=== PATIENT | male | born 1965 | race Caucasian/White ===

== ENCOUNTER 2016-11-17 11:08 | Emergency (ER) | payer MEDICARE ==
--- NOTE | ~2016-11-17 | CT99 ---
[facility] A Service of [facility] RADIOLOGY TEXT RESULTS PATIENT: THERESA BEYER LOCATION: [facility] : 63 UNIT #: [id number] AGE: [address]: Fifi Mueller SEX: M ORDER DR: [id number] [facility]. [place], [place] [address] [id number] MR#: [id number] Acc #: [id number] NAME: THERESA BEYER : 1965 SEX: M STUDY DATE/TIME: 11/17/2016 12:54 UNIT: [facility] ROOM: STUDY DESCRIPTION: CT Maxillofacial Area W Cont Attending Physician: Fifi Mueller P.A.-C. Ordering Physician: Fifi Mueller P.A.-C. Primary Care Physician: Diane Farr MEDICAL IMAGING REPORT This report is preliminary unless electronic signature is present EXAM CT scan of the facial bones with contrast 11/17/2016 HISTORY Tooth pain, facial swelling, right jaw and eye pain for a couple of days. TECHNIQUE The patient was given 100 mL Isovue 370 and axial 2 mm images were obtained through the facial bones. This CT exam was performed with one or more of the following radiation dose reduction techniques: automatic exposure control, adjustment of mA and/or kV according to patient size, and iterative reconstruction. COMPARISON STUDIES There is no comparison. FINDINGS Axial 2 mm images were obtained through the facial bones. There is no fracture visible. IV contrast was administered. The patient received 100 mL of Isovue 370. There is mucosal thickening in the ethmoid sinuses and right maxillary sinus. There is soft tissue swelling in the skin and subcutaneous tissue in the right infraorbital region extending over to the nose. No abscess is visible. The globes appear normal. IMPRESSION There is a 3-4 cm wide area of edema and skin thickening in the right infraorbital region extending over to the side of the nose. No abscess is visible. Otherwise the study is normal. Dictated by... Irno Angel M.D. [facility] A Service of [facility] RADIOLOGY TEXT RESULTS PATIENT: THERESA BEYER LOCATION: [facility] : 63 UNIT #: [id number] AGE: [address]: Fifi Mueller SEX: M ORDER DR: THIS IS AN ELECTRONICALLY VERIFIED REPORT Iron Anegl M.D. at 11/17/2016 5:02 PM Teresa TD: 11/17/2016 15:14 JOB #: [id number] MEDICAL IMAGING REPORT Page 1 of 1 COPY
[~2016-11-17 11:08] MED LIST: ALPRAZOLAM PO; BACTROBAN15 GM; CARDIZEM CD PO; CARDIZEM SR PO; COLACE PO; FLEXERIL10 MG PO; GLUCOTROL PO; HCTZ PO; HYDROCODON-ACE1 EAC9 PO; LISINOPRIL PO; LOPRESSOR PO; LOPRESSOR100 MG PO; LORTAB 10/500 T1 TAB PO; LORTAB 7.5-5001 TAB PO; MEDROL4 MG/DOSE- PO; METAMUCIL0.52 G PO; MILK OF MAGNESIA PO; NO MEDICATIONS; NORVASC; PERIDEX480 ML; PHENERGAN PO; PHENERGAN25 MG PO; PV NEURO VITE T1 TAB SUBQ; TRIPLE ANTIBIOT TP; ULTRAM PO; VICODIN 5/1 TAB 5/50 PO; XANAX0.5 M1 PO; ZYVOX
[2016-11-17 12:07] LABS: BASOPHIL# 0.1 X10e3 (0-0.3); BASOPHIL% 0.8 % (0-2.5); EOSINOPHIL# 0.2 X10e3 (0-0.7); EOSINOPHIL% 1.8 % (0.0-7.0); HEMATOCRIT 53.8 % (38.0-50.0); HEMOGLOBIN 17.9 gm/dL (13.0-16.0); LYMPHOCYTE# 2.8 X10e3 (1.0-3.5); LYMPHOCYTE% 20.5 % (17.0-45.0); MEAN CELL VOLUME 91.8 FL (83-96); MEAN CORPUSCULAR HEMOGLOBIN 30.5 PG (28-34); MEAN CORPUSCULAR HGB CONC 33.3 g/dL (30-36); MEAN PLATELET VOLUME 8.1 FL (6.5-11.5); MONOCYTE# 1.3 X10e3 (0-1.0); MONOCYTE% 9.9 % (3.0-12.0); NEUTROPHIL# 9.1 X10e3 (1.5-7.1); PLATELET COUNT 214 X10e3 (140-420); RED BLOOD COUNT 5.86 X10e (3.90-5.60); RED CELL DISTRIBUTION WIDTH 14.5 % (11.0-15.5); WHITE BLOOD COUNT 13.6 X10e3 (4.0-10.5)
[2016-11-17 12:08] LABS: DIFF IND NO
[2016-11-17 12:32] LABS: BUN/CREATININE RATIO 7.77; CALCIUM SERUM 9.3 mg/dL (8.4-10.2); CREATININE SERUM 0.9 mg/dL (0.6-1.4); GLOM FILT RATE Estimated 97.9 mL/min (>60); POTASSIUM 3.8 mmol/L (3.5-5.1)
== END 2016-11-17 14:28 | disposition home or self-care (01) ==
LOC: CFTX 11:08 → CED 11:08 → CFTX 12:18
PROVIDERS: Physician Assistant
DX: L03.211 Cellulitis of face (principal); E11.9 Type 2 diabetes mellitus without complications; I10 Essential (primary) hypertension; F41.9 Anxiety disorder, unspecified; Z91.040 Latex allergy status; Z88.5 Allergy status to narcotic agent; Z85.038 Personal history of other malignant neoplasm of large intestine
CPT/HCPCS: 36415; 70487; 80048; 85025; 96365; 99284; Q9967

== ENCOUNTER 2017-02-13 22:34 | Emergency (ER) | payer MEDICARE ==
[~2017-02-13] VITALS: Ht 193 cm; Wt 118.0 kg
== END 2017-02-14 00:03 | disposition home or self-care (01) ==
LOC: CED 22:34
DX: K04.7 Periapical abscess without sinus (principal); I10 Essential (primary) hypertension; E11.9 Type 2 diabetes mellitus without complications; Z91.040 Latex allergy status; Z88.5 Allergy status to narcotic agent
CPT/HCPCS: 99282